=== PATIENT | male | born 1955 | race Caucasian/White ===

== ENCOUNTER 2019-04-20 09:28 | Inpatient (IN) ==
[~2019-04-20 09:28] MED LIST: DEXTROSE 50% 25 GM/50 ML VIAL IV PRN; GLUCAGON 1 MG VIAL IM PRN; ZALEPLON 5 MG CAPSULE PO PRN
[2019-04-20 10:12] LABS: Basophils # 0.1 10*3/uL (0.0-0.2); Basophils % 0.8 % (0.0-0.8); Eosinophils # 0.3 10*3/uL (0.0-0.87); Eosinophils % 3.1 % (0.00-10.9); Hematocrit 46.6 VOL% (42.0-52.0); Hemoglobin 15.6 GM/DL (14.0-18.0); Immature Granulocytes % 0.2 %; Immature Granulocytes Absolute 0.02 #; Lymphocytes % 23.1 % (21.2-54.2); Mean Corpuscular HGB Conc 33.5 GM/DL (32-36); Mean Corpuscular Volume 93.2 FL (87-102); Mean Platelet Volume 10.4 FL (9.6-12.0); Monocytes % 7.9 % (1.7-12.7); Neutrophils % 64.9 % (38.7-73.9); Platelet Count 263 T/CUMM (130-400); Red Cell Distribution Width 12.9 % (9.3-17.3); White Blood Count 8.5 T/CUMM (4-12)
[2019-04-20 10:33] LABS: Albumin 3.9 G/DL (3.4-5.0); Bilirubin,Total 0.5 MG/DL (0.2-1.0); Calcium 9.1 MG/DL (8.5-10.1); Osmolality,Calculated 289.8 MOS/KG (273-304); Total Protein 7.4 G/DL (6.4-8.3)
[2019-04-20 10:44] LABS: ABG Base Excess 0.7 MMOL/L (-2.5-2.5); ABG Oxygen Saturation 98.2 % (95-100); ABG PCO2 32.7 MM HG (35-48); ABG PH 7.465 (7.35-7.45); ABG TCO2 19.6 MMOL/L (23-27)
[2019-04-20] MEDS: SODIUM CHLORIDE 0.9% 1,000 ML IV SCH (12:04)
[2019-04-20] MEDS ORDERED: DIAZEPAM 5 MG TABLET PO ONE (14:26)
[2019-04-20] MEDS ORDERED: FAMOTIDINE 20 MG TABLET PO ONE (14:26)
[2019-04-20] MEDS: CHLORHEXIDINE 4% SOLN 118 ML BOTTLE TOP SCH ×2 (16:08→21:14)
[2019-04-20] MEDS: CHLORHEXIDINE 0.12% ORAL RINSE 60 ML BOTTLE SWISH/SPIT SCH (21:14)
[2019-04-21] MEDS: CHLORHEXIDINE 4% SOLN 118 ML BOTTLE TOP SCH ×2 (03:37→12:39)
[2019-04-21] MEDS ORDERED: PAPAVERINE 60 MG/2 ML VIAL ONE (04:22)
[2019-04-21] MEDS ORDERED: VANCOMYCIN 1,000 MG VIAL ONE (04:22)
[2019-04-21] MEDS ORDERED: MIDAZOLAM 10 MG/2 ML VIAL ONE ×2 (05:55→05:56)
[2019-04-21] MEDS ORDERED: SUFentanil 250 MCG/5 ML AMP ONE (05:55)
[2019-04-21] MEDS ORDERED: FAMOTIDINE 20 MG TABLET PO ONE (06:00)
[2019-04-21] MEDS ORDERED: DIAZEPAM 5 MG TABLET PO ONE (06:00)
[2019-04-21] MEDS ORDERED: CEFUROXIME INJ 1,500 MG in SODIUM CHLORIDE 0.9% 100 ML IV ONE (06:00)
[2019-04-21 07:45] LABS: ABG Base Excess -1.7 MMOL/L (-2.5-2.5); ABG Oxygen Saturation 99.7 % (95-100); ABG PCO2 44.4 MM HG (35-48); ABG PH 7.345 (7.35-7.45); ABG TCO2 20.9 MMOL/L (23-27); Glucose Heart Surgery 112 MG/DL (74-106); Hematocrit Heart Surgery 44.5 PERCENT (42-52); Hemoglobin Heart Surgery 14.5 G/DL (14.0-18.0); PCO2 Patient Temp Arterial 44.4 MMHG; PH Patient Temp Arterial 7.345; Patient Temperature 37 CELCIUS; Potassium Heart/CVR 4.2 MMOL/L (3.5-5.1); Sodium Heart/CVR 143 MMOL/L (135-145)
[2019-04-21] MEDS ORDERED: PHENYLEPHRINE DRIP 40 MG/250 ML PREMIX IV ONE (07:59)
[2019-04-21] MEDS ORDERED: CALCIUM CHLORIDE 1,000 MG/10 ML SYRINGE IV ONE (07:59)
[2019-04-21] MEDS ORDERED: SODIUM BICARBONATE 50 MEQ/50 ML VIAL IV ONE ×2 (07:59→10:40)
[2019-04-21] MEDS ORDERED: NITROPRUSSIDE 50 MG/2 ML VIAL ONE (07:59)
[2019-04-21] MEDS ORDERED: POTASSIUM CHLORIDE RIDER 100 ML IV ONE (08:00)
[2019-04-21] MEDS ORDERED: EPINEPHrine 1 MG/10 ML SYRINGE ONE (08:01)
[2019-04-21] MEDS ORDERED: LIDOCAINE 100 MG/5 ML SYRINGE ONE (08:01)
[2019-04-21] MEDS ORDERED: ALBUMIN 5% 12.5 GM/250 ML VIAL IV ONE (08:01)
[2019-04-21 08:47] LABS: Apearance,Urine CLEAR (Clear); Bilirubin,Urine Negative (Negative); Blood, Urine Small mg/dL (Negative); Glucose,Urine (UA) Negative (Negative); Ketones,Urine Negative (Negative); Mucus,Urine Occasional /LPF (Occasional); Nitrite,Urine Negative (Negative); Protein,Urine Negative; RBC,Urine 1 /HPF (0-4); Urine Color Yellow (Yellow); Urine Specific Gravity 1.018 (1.001-1.035); Urine Urobilinogen < 2.0 EU/DL (0.2-1.0); WBC,Urine <1 /HPF (0-6)
[2019-04-21] MEDS ORDERED: LISINOPRIL 10 MG TABLET PO SCH (09:00)
[2019-04-21] MEDS ORDERED: ROSUVASTATIN 20 MG TABLET PO SCH (09:00)
[2019-04-21] MEDS ORDERED: ASPIRIN EC 81 MG TABLET PO SCH (09:00)
[2019-04-21] MEDS ORDERED: METOPROLOL SUCCINATE XL 25 MG TABLET PO SCH (09:00)
[2019-04-21] MEDS ORDERED: HEPARIN/NACL 0.9% 2 UNITS/ML 500 ML IV ONE (09:10)
[2019-04-21] MEDS ORDERED: NITROGLYCERIN DRIP 50 MG/250 ML BOTTLE IV ONE (09:10)
[2019-04-21] MEDS ORDERED: PHENYLEPHRINE DRIP 20 MG/250 ML PREMIX IV ONE (09:10)
[2019-04-21] MEDS ORDERED: VECURONIUM 10 MG VIAL IV ONE (09:11)
[2019-04-21] MEDS ORDERED: ePHEDrine 50 MG/ML AMP ONE (09:11)
[2019-04-21] MEDS ORDERED: SUCCINYLCHOLINE 200 MG/10 ML VIAL ONE (09:12)
[2019-04-21] MEDS ORDERED: ETOMIDATE 40 MG/20 ML VIAL IV ONE (09:12)
[2019-04-21] MEDS ORDERED: AMINOCAPROIC ACID 5,000 MG/20 ML VIAL ONE (09:12)
[2019-04-21 09:21] LABS: Hematocrit Heart Surgery 30.8 PERCENT (42-52); PCO2 Patient Temp Venous 35.5 MM HG; PH Patient Temp Venous 7.436; PO2 Patient Temp Venous 39.4 MM HG; Potassium Heart/CVR 4.8 MMOL/L (3.5-5.1); VBG Base Excess 0.1 MEQ/L (0-4); VBG HCO3 24.3 MEQ/L (24-28); VBG Oxygen Saturation 83.3 %; VBG PCO2 39.2 MMHG (41-51); VBG PH 7.407; VBG PO2 45.2 MMHG (17-40)
[2019-04-21 09:54] LABS: Hematocrit Heart Surgery 36.7 PERCENT (42-52); Hemoglobin Heart Surgery 11.9 G/DL (14.0-18.0); PCO2 Patient Temp Venous 30.1 MM HG; PH Patient Temp Venous 7.502; PO2 Patient Temp Venous 36.6 MM HG; Potassium Heart/CVR 4.6 MMOL/L (3.5-5.1); VBG Base Excess 1.1 MEQ/L (0-4); VBG HCO3 25.1 MEQ/L (24-28); VBG Oxygen Saturation 84.6 %; VBG PCO2 34.8 MMHG (41-51); VBG PH 7.457
[2019-04-21] MEDS ORDERED: MANNITOL 100 GM/500 ML BAG IV ONE (10:39)
[2019-04-21] MEDS ORDERED: MAGNESIUM SULFATE 5 GM/10 ML VIAL IV ONE (10:40)
[2019-04-21] MEDS ORDERED: methylPREDNISolone SOD SUC 1,000 MG/8 ML VIAL ONE (10:40)
[2019-04-21] MEDS ORDERED: PROTAMINE SULFATE 250 MG/25 ML VIAL IV ONE (10:40)
[2019-04-21] MEDS ORDERED: ALBUMIN 25% 25 GM/100 ML VIAL IV ONE (10:40)
[2019-04-21] MEDS ORDERED: DEXTROSE 5% KCL 20 MEQ 20 MEQ/1,000 ML BAG IV ONE (10:40)
[2019-04-21] MEDS ORDERED: HEPARIN 10,000 UNIT/10 ML VIAL ONE (10:40)
[2019-04-21] MEDS ORDERED: FUROSEMIDE 20 MG/2 ML VIAL ONE (10:41)
[2019-04-21] MEDS ORDERED: POTASSIUM CHLORIDE 20 MEQ/10 ML VIAL ONE (10:41)
[2019-04-21 10:53] LABS: ABG Base Excess 0.1 MMOL/L (-2.5-2.5); ABG HCO3 24.5 MMOL/L (20-26); ABG Oxygen Saturation 99.1 % (95-100); ABG PCO2 36.8 MM HG (35-48); ABG PH 7.424 (7.35-7.45); ABG TCO2 21.1 MMOL/L (23-27); Glucose Heart Surgery 202 MG/DL (74-106); Hematocrit Heart Surgery 39.1 PERCENT (42-52); Hemoglobin Heart Surgery 12.7 G/DL (14.0-18.0); Ionized Calcium Arterial 1.25 MMOL/L (1.21-1.46); PCO2 Patient Temp Arterial 36.8 MMHG; PH Patient Temp Arterial 7.424; Patient Temperature 37 CELCIUS; Sodium Heart/CVR 140 MMOL/L (135-145)
[2019-04-21] MEDS: SODIUM CHLORIDE 0.45% 1,000 ML IV SCH ×2 (11:35)
[2019-04-21] MEDS ORDERED: SODIUM CHLORIDE 0.9% 250 ML IV ONE (11:43)
[2019-04-21] MEDS ORDERED: SODIUM CHLORIDE 0.9% 100 ML IV ONE (11:43)
[2019-04-21] MEDS ORDERED: SEVOFLURANE 1 UNIT/15 MINUTE INH ONE (11:43)
[2019-04-21] MEDS ORDERED: SODIUM CHLORIDE 0.9% 1,000 ML IV ONE (11:43)
[2019-04-21] MEDS ORDERED: LACTATED RINGERS 1,000 ML IV ONE ×5 (11:43→15:00)
[2019-04-21] MEDS ORDERED: GLYCOPYRROLATE 0.4 MG/2 ML VIAL ONE (11:43)
[2019-04-21] MEDS ORDERED: CALCIUM CHLORIDE 1,000 MG/10 ML VIAL IV ONE (11:45)
[2019-04-21] MEDS ORDERED: PROTAMINE SULFATE 50 MG/5 ML VIAL IV ONE ×2 (11:49→12:00)
[2019-04-21] MEDS ORDERED: NITROPRUSSIDE 100 MG in DEXTROSE 5% 250 ML IV PRN (11:50)
[2019-04-21] MEDS ORDERED: CALCIUM CHLORIDE 1,000 MG/10 ML SYRINGE IV PRN (11:50)
[2019-04-21] MEDS ORDERED: VECURONIUM 10 MG VIAL IV PRN ×2 (11:50)
[2019-04-21] MEDS ORDERED: PHENYLEPHRINE DRIP 40 MG/250 ML PREMIX IV PRN (11:50)
[2019-04-21] MEDS ORDERED: MORPHINE 10 MG/1 ML VIAL IV PRN (11:50)
[2019-04-21] MEDS ORDERED: MIDAZOLAM 10 MG/2 ML VIAL IV PRN (11:50)
[2019-04-21] MEDS ORDERED: INSULIN REGULAR 100 UNIT/ML IV ONE (11:50)
[2019-04-21] MEDS ORDERED: MAGNESIUM SULF RIDER 4 GM in PREMIX 1 EACH IV PRN (11:50)
[2019-04-21] MEDS ORDERED: ACETAMINOPHEN 650 MG SUPP RECTAL PRN (11:50)
[2019-04-21] MEDS ORDERED: MAGNESIUM SULF RIDER 2 GM in PREMIX 1 EACH IV PRN (11:50)
[2019-04-21] MEDS ORDERED: MORPHINE 4 MG/1 ML VIAL IV PRN (11:50)
[2019-04-21] MEDS ORDERED: LACTATED RINGERS 250 ML IV PRN (11:50)
[2019-04-21] MEDS ORDERED: MIDAZOLAM 2 MG/2 ML VIAL IV PRN (11:50)
[2019-04-21] MEDS ORDERED: INSULIN REGULAR 100 UNIT/ML IV PRN (11:50)
[2019-04-21] MEDS ORDERED: ONDANSETRON 4 MG/2 ML VIAL IV PRN (11:50)
[2019-04-21] MEDS ORDERED: DEXTROSE 50% 25 GM/50 ML VIAL IV PRN ×2 (11:50)
[2019-04-21 11:57] LABS: ABG Base Excess -0.2 MMOL/L (-2.5-2.5); ABG HCO3 24.3 MMOL/L (20-26); ABG Oxygen Saturation 99.6 % (95-100); ABG PCO2 39.4 MM HG (35-48); ABG TCO2 21.1 MMOL/L (23-27); Glucose Heart Surgery 182 MG/DL (74-106); Hematocrit Heart Surgery 42.9 PERCENT (42-52); Potassium Heart/CVR 3.7 MMOL/L (3.5-5.1)
[2019-04-21 11:58] LABS: Basophils # 0.1 10*3/uL (0.0-0.2); Basophils % 0.4 % (0.0-0.8); Eosinophils # 0.1 10*3/uL (0.0-0.87); Eosinophils % 0.5 % (0.00-10.9); Hematocrit 40.2 VOL% (42.0-52.0); Immature Granulocytes % 0.6 %; Immature Granulocytes Absolute 0.08 #; Lymphocytes % 6.7 % (21.2-54.2); Mean Corpuscular HGB Conc 33.1 GM/DL (32-36); Mean Corpuscular Volume 92.8 FL (87-102); Mean Platelet Volume 10.3 FL (9.6-12.0); Monocytes % 3.2 % (1.7-12.7); Neutrophils % 88.6 % (38.7-73.9); Red Blood Count 4.33 MC/CUMM (3.8-5.5); Red Cell Distribution Width 12.8 % (9.3-17.3)
[2019-04-21] MEDS ORDERED: INSULIN REGULAR DRIP 100 ML IV SCH (12:00)
[2019-04-21 12:02] LABS: Hemoglobin 13.3 GM/DL (14.0-18.0); Platelet Count 191 T/CUMM (130-400); White Blood Count 14.1 T/CUMM (4-12)
[2019-04-21 12:19] LABS: INR 1.1; PT Patient Result 11.6 SECS; Partial Thromboplastin Time 28.5 SECS (0-40)
[2019-04-21] MEDS: POTASSIUM CHLORIDE RIDER 20 MEQ in PREMIX 1 EACH IV PRN ×2 (12:30→16:28)
[2019-04-21 12:33] LABS: Albumin 3.6 G/DL (3.4-5.0); Bilirubin,Total 0.8 MG/DL (0.2-1.0); Calcium 8.5 MG/DL (8.5-10.1); Osmolality,Calculated 296.4 MOS/KG (273-304); Total Protein 5.9 G/DL (6.4-8.3)
[2019-04-21 12:34] LABS: CKMB % 3.7 %
[2019-04-21 12:37] LABS: Troponin I 1.08 NG/ML (0.00-0.045)
[2019-04-21] MEDS: KETOROLAC 30 MG/1 ML VIAL IV SCH ×2 (12:38→18:05)
[2019-04-21] MEDS: POTASSIUM CHLORIDE RIDER 10 MEQ in PREMIX 1 EACH IV PRN ×2 (13:01→16:31)
[2019-04-21 13:25] LABS: ABG Base Excess -1.5 MMOL/L (-2.5-2.5); ABG Oxygen Saturation 98.6 % (95-100); ABG PCO2 38.3 MM HG (35-48); ABG PH 7.397 (7.35-7.45); ABG PO2 174.9 MM HG (80-95); ABG TCO2 24.2 MMOL/L (23-27); Glucose Heart Surgery 153 MG/DL (74-106); Hemoglobin Heart Surgery 13.4 G/DL (14.0-18.0); Potassium Heart/CVR 4.3 MMOL/L (3.5-5.1)
[2019-04-21 15:57] LABS: ABG Base Excess -1.3 MMOL/L (-2.5-2.5); ABG HCO3 23.3 MMOL/L (20-26); ABG Oxygen Saturation 98.3 % (95-100); ABG PCO2 42.1 MM HG (35-48); ABG PH 7.365 (7.35-7.45); ABG TCO2 21.4 MMOL/L (23-27); Glucose Heart Surgery 170 MG/DL (74-106); Hematocrit Heart Surgery 36.5 PERCENT (42-52); Hemoglobin Heart Surgery 11.9 G/DL (14.0-18.0); Potassium Heart/CVR 3.5 MMOL/L (3.5-5.1)
[2019-04-21] MEDS: ALBUMIN 5% 12.5 GM in PREMIX 1 EACH IV PRN ×2 (16:15→17:29)
[2019-04-21] MEDS ORDERED: AMIODARONE 150 MG/3 ML VIAL ONE (18:03)
[2019-04-21] MEDS ORDERED: AMIODARONE INJ 150 MG in DEXTROSE 5% 100 ML IV ONE (18:10)
[2019-04-21] MEDS ORDERED: AMIODARONE 450 MG/9 ML VIAL IV ONE (18:22)
[2019-04-21] MEDS ORDERED: AMIODARONE INJ 450 MG in DEXTROSE 5% 241 ML IV SCH (18:30)
[2019-04-21] MEDS: CHLORHEXIDINE 0.12% ORAL RINSE 60 ML BOTTLE SWISH/SPIT SCH ×2 (19:12→21:47)
[2019-04-21] MEDS: SODIUM CHLORIDE 0.9% 1,000 ML IV SCH (19:13)
[2019-04-21 19:49] LABS: ABG Base Excess -0.9 MMOL/L (-2.5-2.5); ABG HCO3 23.7 MMOL/L (20-26); ABG PCO2 41.3 MM HG (35-48); ABG PH 7.377 (7.35-7.45); ABG TCO2 21.8 MMOL/L (23-27); Glucose Heart Surgery 145 MG/DL (74-106); Hematocrit Heart Surgery 34.6 PERCENT (42-52); Hemoglobin Heart Surgery 11.2 G/DL (14.0-18.0); Potassium Heart/CVR 3.7 MMOL/L (3.5-5.1)
[2019-04-21] MEDS: CEFUROXIME INJ 1,500 MG in SYRINGE 1 EACH IV SCH (20:04)
[2019-04-21 20:50] LABS: CKMB % 5.4 %
[2019-04-21 20:52] LABS: Troponin I 4.65 NG/ML (0.00-0.045)
[2019-04-21 23:25] LABS: ABG Base Excess -0.2 MMOL/L (-2.5-2.5); ABG HCO3 24.3 MMOL/L (20-26); ABG Oxygen Saturation 96.8 % (95-100); ABG PCO2 42.3 MM HG (35-48); ABG PO2 84.7 MM HG (80-95); ABG TCO2 22.5 MMOL/L (23-27); Glucose Heart Surgery 124 MG/DL (74-106); Hematocrit Heart Surgery 34.3 PERCENT (42-52); Hemoglobin Heart Surgery 11.1 G/DL (14.0-18.0); Potassium Heart/CVR 3.8 MMOL/L (3.5-5.1)
[2019-04-22] MEDS ORDERED: FUROSEMIDE 40 MG/4 ML VIAL IV ONE
[2019-04-22] MEDS ORDERED: AMIODARONE INJ 450 MG in DEXTROSE 5% 241 ML IV SCH (01:30)
[2019-04-22] MEDS: KETOROLAC 30 MG/1 ML VIAL IV SCH ×5 (01:48→18:08)
[2019-04-22 03:58] LABS: ABG Base Excess 2.3 MMOL/L (-2.5-2.5); ABG HCO3 26.4 MMOL/L (20-26); ABG Oxygen Saturation 97.1 % (95-100); ABG PCO2 37.7 MM HG (35-48); ABG PO2 80.1 MM HG (80-95); ABG TCO2 22.9 MMOL/L (23-27); Glucose Heart Surgery 128 MG/DL (74-106); Hematocrit Heart Surgery 38.8 PERCENT (42-52); Hemoglobin Heart Surgery 12.6 G/DL (14.0-18.0); Potassium Heart/CVR 3.9 MMOL/L (3.5-5.1)
[2019-04-22 04:01] LABS: Basophils % 0.2 % (0.0-0.8); Hematocrit 35.1 VOL% (42.0-52.0); Hemoglobin 11.7 GM/DL (14.0-18.0); Immature Granulocytes % 0.7 %; Immature Granulocytes Absolute 0.11 #; Lymphocytes # 0.6 10*3/uL (1.4-4.0); Lymphocytes % 4.1 % (21.2-54.2); Mean Corpuscular HGB Conc 33.3 GM/DL (32-36); Mean Corpuscular Volume 92.6 FL (87-102); Mean Platelet Volume 10.5 FL (9.6-12.0); Platelet Count 201 T/CUMM (130-400); Red Blood Count 3.79 MC/CUMM (3.8-5.5); Red Cell Distribution Width 12.9 % (9.3-17.3); White Blood Count 15.3 T/CUMM (4-12)
[2019-04-22 04:16] LABS: Albumin 3.8 G/DL (3.4-5.0); Bilirubin,Direct 0.18 MG/DL (0.0-0.20); Bilirubin,Total 0.7 MG/DL (0.2-1.0); CKMB % 6.2 %; Calcium 8.6 MG/DL (8.5-10.1); Osmolality,Calculated 287.8 MOS/KG (273-304)
[2019-04-22 04:19] LABS: Troponin I 7.53 NG/ML (0.00-0.045)
[2019-04-22 05:04] LABS: Lymphocytes 2 % (20-55); Segmented Neutrophils 92 % (50-85); Total Cells Counted 100
[2019-04-22 05:05] LABS: Anisocytosis Slight; Microcytosis 1+; Ovalocytes Slight; Platelet Estimate Normal
[2019-04-22] MEDS: POTASSIUM CHLORIDE RIDER 20 MEQ in PREMIX 1 EACH IV PRN ×2 (05:19)
[2019-04-22] MEDS: CEFUROXIME INJ 1,500 MG in SYRINGE 1 EACH IV SCH (08:33)
[2019-04-22] MEDS: INSULIN REGULAR 100 UNIT/ML SUBCUT SCH ×2 (09:08→13:27)
[2019-04-22] MEDS: ROSUVASTATIN 20 MG TABLET PO SCH (09:20)
[2019-04-22] MEDS: METOPROLOL SUCCINATE XL 25 MG TABLET PO SCH (09:21)
[2019-04-22] MEDS: LISINOPRIL 10 MG TABLET PO SCH (09:21)
[2019-04-22] MEDS: AMIODARONE 200 MG TABLET PO SCH ×4 (09:21→21:11)
[2019-04-22] MEDS: ASPIRIN EC 81 MG TABLET PO SCH (09:21)
[2019-04-22] MEDS: CHLORHEXIDINE 0.12% ORAL RINSE 60 ML BOTTLE SWISH/SPIT SCH ×3 (09:24→21:09)
[2019-04-22] MEDS ORDERED: DEXTROSE 50% 25 GM/50 ML VIAL IV PRN ×2 (13:06)
[2019-04-22] MEDS ORDERED: MAGNESIUM SULF RIDER 4 GM in PREMIX 1 EACH IV PRN (13:06)
[2019-04-22] MEDS ORDERED: GLUCAGON 1 MG VIAL IM PRN ×2 (13:06)
[2019-04-22] MEDS ORDERED: ONDANSETRON 4 MG/2 ML VIAL IV PRN (13:06)
[2019-04-22] MEDS ORDERED: ALUMINUM/MAGNES/SIMETH MAX STR 30 ML UDCUP PO PRN (13:06)
[2019-04-22] MEDS ORDERED: MORPHINE 4 MG/1 ML VIAL IV PRN (13:06)
[2019-04-22] MEDS ORDERED: ACETAMINOPHEN 325 MG TABLET PO PRN (13:06)
[2019-04-22] MEDS ORDERED: MAGNESIUM HYDROXIDE SUSP 30 ML UDCUP PO PRN (13:06)
[2019-04-22] MEDS ORDERED: oxyCODONE/ACETAMINOPHEN 5-325 MG TABLET PO PRN (13:06)
[2019-04-22] MEDS ORDERED: MAGNESIUM SULF RIDER 2 GM in PREMIX 1 EACH IV PRN (13:06)
[2019-04-22] MEDS ORDERED: SODIUM CHLOR 0.45% KCL 20 MEQ 20 MEQ/1,000 ML BAG IV SCH (13:06)
[2019-04-22] MEDS ORDERED: ZALEPLON 5 MG CAPSULE PO PRN (13:06)
[2019-04-22 13:27] LABS: CKMB % 4.4 %
[2019-04-22] MEDS: SODIUM CHLORIDE 0.45% 1,000 ML IV SCH ×2 (13:27)
[2019-04-22 13:33] LABS: Troponin I 9.7 NG/ML (0.00-0.045)
[2019-04-22] MEDS: DOCUSATE SODIUM 100 MG CAPSULE PO SCH (13:49)
[2019-04-22] MEDS: PANTOPRAZOLE 40 MG TABLET PO SCH (13:49)
[2019-04-22] MEDS: FERROUS SULFATE 325 MG TABLET PO SCH (13:57)
[2019-04-23] MEDS: KETOROLAC 30 MG/1 ML VIAL IV SCH ×4 (00:45→20:37)
[2019-04-23 04:42] LABS: Basophils % 0.2 % (0.0-0.8); Eosinophils % 0.1 % (0.00-10.9); Hematocrit 32.6 VOL% (42.0-52.0); Hemoglobin 10.5 GM/DL (14.0-18.0); Immature Granulocytes % 0.7 %; Immature Granulocytes Absolute 0.12 #; Lymphocytes # 1.1 10*3/uL (1.4-4.0); Lymphocytes % 6.3 % (21.2-54.2); Mean Corpuscular HGB Conc 32.2 GM/DL (32-36); Mean Corpuscular Volume 95.3 FL (87-102); Mean Platelet Volume 10.9 FL (9.6-12.0); Neutrophils % 85.7 % (38.7-73.9); Platelet Count 192 T/CUMM (130-400); Red Blood Count 3.42 MC/CUMM (3.8-5.5); White Blood Count 17.5 T/CUMM (4-12)
[2019-04-23 05:12] LABS: Albumin 3.1 G/DL (3.4-5.0); Bilirubin,Direct 0.13 MG/DL (0.0-0.20); Bilirubin,Indirect 0.7 MG/DL (0.0-1.0); Bilirubin,Total 0.8 MG/DL (0.2-1.0); CKMB % 2.1 %; Osmolality,Calculated 293.7 MOS/KG (273-304); Total Protein 5.7 G/DL (6.4-8.3)
[2019-04-23 05:13] LABS: Troponin I 7.68 NG/ML (0.00-0.045)
[2019-04-23] MEDS ORDERED: FUROSEMIDE 40 MG/4 ML VIAL IV ONE (06:00)
[2019-04-23] MEDS: ROSUVASTATIN 20 MG TABLET PO SCH (08:48)
[2019-04-23] MEDS: ASPIRIN EC 81 MG TABLET PO SCH (08:48)
[2019-04-23] MEDS: PANTOPRAZOLE 40 MG TABLET PO SCH (08:49)
[2019-04-23] MEDS: METOPROLOL SUCCINATE XL 25 MG TABLET PO SCH (08:49)
[2019-04-23] MEDS: AMIODARONE 200 MG TABLET PO SCH ×3 (08:50→20:38)
[2019-04-23] MEDS: FERROUS SULFATE 325 MG TABLET PO SCH (08:50)
[2019-04-23] MEDS: LISINOPRIL 10 MG TABLET PO SCH (08:50)
[2019-04-23] MEDS: DOCUSATE SODIUM 100 MG CAPSULE PO SCH (08:50)
[2019-04-23] MEDS: CHLORHEXIDINE 0.12% ORAL RINSE 60 ML BOTTLE SWISH/SPIT SCH ×2 (08:52→20:38)
[2019-04-24] MEDS: KETOROLAC 30 MG/1 ML VIAL IV SCH ×4 (02:25→20:15)
[2019-04-24 05:09] LABS: Basophils # 0.1 10*3/uL (0.0-0.2); Basophils % 0.5 % (0.0-0.8); Eosinophils # 0.3 10*3/uL (0.0-0.87); Eosinophils % 2.5 % (0.00-10.9); Hematocrit 33.8 VOL% (42.0-52.0); Hemoglobin 10.8 GM/DL (14.0-18.0); Immature Granulocytes % 0.5 %; Immature Granulocytes Absolute 0.07 #; Lymphocytes # 2.3 10*3/uL (1.4-4.0); Lymphocytes % 17.6 % (21.2-54.2); Mean Corpuscular Volume 95.5 FL (87-102); Mean Platelet Volume 10.7 FL (9.6-12.0); Neutrophils % 71.9 % (38.7-73.9); Platelet Count 200 T/CUMM (130-400); Red Blood Count 3.54 MC/CUMM (3.8-5.5)
[2019-04-24 05:57] LABS: Alanine Aminotransferase 49 U/L (16-61); Albumin 2.9 G/DL (3.4-5.0); Alkaline Phosphatase 57 U/L (45-117); Aspartate Amino Transferase 28 U/L (0-37); Bilirubin,Indirect 0.6 MG/DL (0.0-1.0); Blood Urea Nitrogen 35 MG/DL (7-18); Calcium 8.5 MG/DL (8.5-10.1); Glucose 88 MG/DL (74-106); Total Protein 5.9 G/DL (6.4-8.3)
[2019-04-24] MEDS: ASPIRIN EC 81 MG TABLET PO SCH (08:26)
[2019-04-24] MEDS: ROSUVASTATIN 20 MG TABLET PO SCH (08:26)
[2019-04-24] MEDS: PANTOPRAZOLE 40 MG TABLET PO SCH (08:26)
[2019-04-24] MEDS: LISINOPRIL 10 MG TABLET PO SCH (08:26)
[2019-04-24] MEDS: METOPROLOL SUCCINATE XL 25 MG TABLET PO SCH (08:26)
[2019-04-24] MEDS: DOCUSATE SODIUM 100 MG CAPSULE PO SCH (08:27)
[2019-04-24] MEDS: FERROUS SULFATE 325 MG TABLET PO SCH (08:27)
[2019-04-24] MEDS: CHLORHEXIDINE 0.12% ORAL RINSE 60 ML BOTTLE SWISH/SPIT SCH ×2 (08:27→20:16)
[2019-04-24] MEDS: AMIODARONE 200 MG TABLET PO SCH ×2 (08:27→20:15)
[2019-04-24] MEDS: POTASSIUM CHLORIDE 20 MEQ TABLET PO PRN ×2 (08:47→12:42)
[2019-04-25] MEDS: KETOROLAC 30 MG/1 ML VIAL IV SCH ×2 (01:25→06:40)
[2019-04-25 05:06] LABS: Basophils % 0.4 % (0.0-0.8); Eosinophils # 0.4 10*3/uL (0.0-0.87); Eosinophils % 3.8 % (0.00-10.9); Hematocrit 33.1 VOL% (42.0-52.0); Hemoglobin 10.8 GM/DL (14.0-18.0); Immature Granulocytes % 0.5 %; Immature Granulocytes Absolute 0.05 #; Lymphocytes % 18.9 % (21.2-54.2); Mean Corpuscular HGB Conc 32.6 GM/DL (32-36); Mean Corpuscular Volume 93.8 FL (87-102); Mean Platelet Volume 10.5 FL (9.6-12.0); Monocytes % 7.8 % (1.7-12.7); Neutrophils % 68.6 % (38.7-73.9); Platelet Count 222 T/CUMM (130-400); Red Blood Count 3.53 MC/CUMM (3.8-5.5); Red Cell Distribution Width 12.8 % (9.3-17.3); White Blood Count 10.8 T/CUMM (4-12)
[2019-04-25 05:27] LABS: Albumin 2.9 G/DL (3.4-5.0); Bilirubin,Total 0.5 MG/DL (0.2-1.0); Calcium 8.5 MG/DL (8.5-10.1); Osmolality,Calculated 290.8 MOS/KG (273-304); Total Protein 5.9 G/DL (6.4-8.3)
[2019-04-25] MEDS ORDERED: KETOROLAC 10 MG TABLET PO PRN (07:59)
[2019-04-25 08:01] VITALS: BP 121/70
[2019-04-25] MEDS: LISINOPRIL 10 MG TABLET PO SCH (08:54)
[2019-04-25] MEDS: ROSUVASTATIN 20 MG TABLET PO SCH (08:54)
[2019-04-25] MEDS: METOPROLOL SUCCINATE XL 25 MG TABLET PO SCH (08:54)
[2019-04-25] MEDS: DOCUSATE SODIUM 100 MG CAPSULE PO SCH (08:54)
[2019-04-25] MEDS: FERROUS SULFATE 325 MG TABLET PO SCH (08:54)
[2019-04-25] MEDS: CHLORHEXIDINE 0.12% ORAL RINSE 60 ML BOTTLE SWISH/SPIT SCH (08:55)
[2019-04-25] MEDS: AMIODARONE 200 MG TABLET PO SCH (08:55)
[2019-04-25] MEDS: PANTOPRAZOLE 40 MG TABLET PO SCH (08:55)
[2019-04-25] MEDS: ASPIRIN EC 81 MG TABLET PO SCH (08:55)
== END 2019-04-25 10:33 | disposition home or self-care (01) | DRG 236 ==
LOC: SUPCPDRO 09:28 → N.3E 09:28 → N.CVR 04-21 09:05 → N.TELES 04-22 12:21